=== PATIENT | female | born 1965 | race Caucasian/White ===

== ENCOUNTER 2016-09-17 19:10 | Emergency (ER) | payer MEDICAID ==
[~2016-09-17] VITALS: Ht 152.4 cm; Wt 55.5 kg
[2016-09-17 19:19] VITALS: Ht 152.4 cm; Wt 55.5 kg
[2016-09-17 19:54] LABS: URINE BLOOD (Dip) POC 3+ (NEGATIVE)
[2016-09-17 19:58] LABS: ADD SCAN DIFF NO
[2016-09-17 20:12] LABS: BASOPHIL # 0.1 10^3/ul (0.0-0.1); BASOPHILS % 0.6 % (0.0-2.0); EOSINOPHILS # 0.1 10^3/ul (0.0-0.5); EOSINOPHILS % 1.1 % (0.0-7.0); HEMATOCRIT 41.9 % (37.0-47.0); HEMOGLOBIN 13.3 g/dl (12.0-16.0); LYMPHOCYTES # 3.2 10^3/ul (0.8-2.9); MEAN CORPUSCULAR HEMOGLOBIN 29.6 pg (29.0-33.0); MEAN CORPUSCULAR HGB CONC 31.7 g/dl (32.0-37.0); MEAN CORPUSCULAR VOLUME 93.3 fl (82.0-101.0); MEAN PLATELET VOLUME 10.4 fl (7.4-10.4); MONOCYTE # 0.8 10^3/ul (0.3-0.9); MONOCYTES % 7.3 % (0.0-11.0); NEUTROPHIL # 6.6 10^3/ul (1.6-7.5); NEUTROPHILS % 60.7 % (39.0-77.0); PLATELET COUNT 341 10^3/UL (140-415); RED BLOOD COUNT 4.49 10^6/ul (4.20-5.40); RED CELL DISTRIBUTION WIDTH 13.3 % (11.5-14.5); WHITE BLOOD COUNT 10.8 10^3/ul (4.8-10.8)
--- NOTE | 2016-09-17 20:32 | RADRPT ---
PROCEDURE: US Pelvis. CLINICAL INDICATION: Pelvic pain and vaginal bleeding. TECHNIQUE: The pelvis was evaluated with transabdominal and transvaginal sonography in the axial a nd sagittal planes. COMPARISON: No prior study is available for comparison. FINDINGS: Uterus: 8.1 x 4.0 x 5.3 cm. Endometrium: 3.9 mm. Right ovary: 2.1 x 1.6 x 1.9 cm. Left ovary: Not visualized. Uterine masses: There is a posterior hypoechoic fibroid in the uterus measuring 0.9 x 0.8 x 1.0 cm. There is no other uterine mass. Ovarian masses: There is a benign-appearing right ovarian cyst measuring 1.5 x 1.0 x 1.6 cm with no internal echoes or septations. The left ovary is not visualized. Color Doppler and pulsed Doppler s onography demonstrate normal flow to the right ovary. Other pelvic masses: None. Free fluid: None. IMPRESSION: 1. Benign-appearing right ovarian cyst measuring 1.6 cm. No further evaluation required. 2. Left ovary not visualized. 3. Small fibroid in the uterus measuring 1.0 cm. 4. Otherwise unremarkable pelvic ultrasound. RPTAT: QQ .Yefri Mallory MD, Date Time Electronically viewed and signed by .Yefri Mallory MD, on 09/17/2016 20:31 .R/
[2016-09-17] MEDS ORDERED: IBUP-1542 PO (20:37)
--- NOTE | 2016-09-17 20:47 | ERD ---
ER Documentation Chief Complaint Date/Time DATE: 09/17/16 TIME: 20:42 Chief Complaint Vaginal bleed x3 weeks. LMP on July She is a 51-year-old female who presents to the emergency department with numerous concerns including vaginal bleeding 3 weeks, pelvic pain, dizziness. Patient states that she has a history of irregular periods. Patient states typically her period occurs at the end of the month. However over the recent months her period has been occurring irregularly. Patient states that she had vaginal bleeding for 1 day in August however for the last 3 weeks she has been bleeding nonstop. Patient ports passing numerous blood clots. Patient states she uses approximately 3 pads per day. Patient denies any fevers however she does admit to chills. Patient denies any nausea, vomiting, abdominal pain, diarrhea. Patient denies any chest pain, shortness of breath. Patient does feel slightly dizzy and states she had does have a mild headache. Patient denies sudden onset of headache. Patient denies any loss of consciousness. ROS All systems reviewed and are negative except as per history of present illness. Medications Home Meds Active Scripts Ibuprofen* (Motrin*) 600 Mg Tab, 600 MG PO Q6, #30 TAB Prov:JHONATHAN BOYLE PA-C 09/17/16 PMhx/Soc Medical and Surgical Hx: pt denies Medical Hx, pt denies Surgical Hx Hx Alcohol Use: No Hx Substance Use: No Hx Tobacco Use: No Smoking Status: Never smoker Physical Exam Vitals Vital Signs Date Time Temp Pulse Resp B/P Pulse Ox O2 Delivery O2 Flow Rate FiO2 09/17/16 19:19 98.9 78 20 157/91 100 Physical Exam GENERAL: Well-developed, well-nourished female. Appears in no acute distress. HEAD: Normocephalic, atraumatic. EYES: Pupils are equally reactive bilaterally. EOMs grossly intact. No conjunctival erythema. No Conjunctival pallor ENT: Moist mucous membranes. No uvula deviation. No kissing tonsils. NECK: Supple. No meningismus. Normal range of motion of the neck. LUNG: Clear to auscultation bilaterally. No rhonchi, wheezing, rales or coarse breath sounds. HEART: Regular rate and rhythm. No murmurs, rubs or gallops. ABDOMEN: No scars, ecchymosis or rashes noted. Soft, and nondistended. Tender to palpation of this suprapubic region. Positive bowel sounds in all four quadrants. No rebound tenderness, no guarding. (-) McBurney's point tenderness. No CVA tenderness. EXTREMITIES: Equal pulses bilaterally. No peripheral clubbing, cyanosis or edema. No unilateral leg swelling. NEUROLOGIC: Alert and oriented. Moving all four extremities without any difficulty. Normal speech. Steady gait. SKIN: Normal color. Warm and dry. No rashes or lesions. Result Diagram: 09/17/161947 Results 24 hrs Laboratory Tests Test 09/17/16 19:48 09/17/16 19:52 Basophils # 0.110^3/ul Basophils % 0.6% Eosinophils # 0.110^3/ul Eosinophils % 1.1% Hematocrit 41.9% Hemoglobin 13.3g/dl Lymphocytes # 3.210^3/ul Lymphocytes % 30.0% Mean Corpuscular Hemoglobin 29.6pg Mean Corpuscular Hemoglobin Concent 31.7g/dl Mean Corpuscular Volume 93.3fl Mean Platelet Volume 10.4fl Monocytes # 0.810^3/ul Monocytes % 7.3% Neutrophils # 6.610^3/ul Neutrophils % 60.7% Nucleated Red Blood Cells # 0.010^3/ul Nucleated Red Blood Cells % 0.0/100WBC Platelet Count 58230^3/UL Red Blood Count 4.4910^6/ul Red Cell Distribution Width 13.3% White Blood Count 10.810^3/ul Bedside Urine Blood 3+ Bedside Urine Glucose (UA) Negative Bedside Urine Ketones (LAB) Negative Bedside Urine Leukocyte Esterase (L Negative Bedside Urine Nitrite (LAB) Negative Bedside Urine Protein (LAB) Trace Bedside Urine pH (LAB) 6.0 Procedures/MDM ED COURSE: The patient was stable throughout ED course. I kept the patient and/or family informed of laboratory and diagnostic imaging results throughout the ED course. DIAGNOSTIC IMAGING: Read by radiologist. Patient: HORACIO CODY : 1965 Age: 51 Sex: F MR #: [id number] DOS: 09/17/161937 Ordering MD: JHONATHAN BOYLE PA-C Location: [facility] Room/Bed: PROCEDURE: US Pelvis. CLINICAL INDICATION: Pelvic pain and vaginal bleeding. TECHNIQUE: The pelvis was evaluated with transabdominal and transvaginal sonography in the axial and sagittal planes. COMPARISON: No prior study is available for comparison. FINDINGS: Uterus: 8.1 x 4.0 x 5.3 cm. Endometrium: 3.9 mm. Right ovary: 2.1 x 1.6 x 1.9 cm. Left ovary: Not visualized. Uterine masses: There is a posterior hypoechoic fibroid in the uterus measuring 0.9 x 0.8 x 1.0 cm. There is no other uterine mass. Ovarian masses: There is a benign-appearing right ovarian cyst measuring 1.5 x 1.0 x 1.6 cm with no internal echoes or septations. The left ovary is not visualized. Color Doppler and pulsed Doppler sonography demonstrate normal flow to the right ovary. Other pelvic masses: None. Free fluid: None. IMPRESSION: 1. Benign-appearing right ovarian cyst measuring 1.6 cm. No further evaluation required. 2. Left ovary not visualized. 3. Small fibroid in the uterus measuring 1.0 cm. 4. Otherwise unremarkable pelvic ultrasound. RPTAT: QQ .Yefri Mallory MD, MD Date Time Electronically viewed and signed by .Yefri Mallory MD, MD on 09/17/2016 20:31 .R/ CC: JHONATHAN BOYLE PA-C MEDICAL DECISION MAKING: This is a 51-year-old female who presents with vaginal bleeding and pelvic pain. She states her period has been irregular over the last few months. Patient states her current menstrual cycle is lasting 3 weeks.. Vital signs were reviewed. Patient was afebrile. Urine test was negative. CBC showed no evidence of systemic infection or severe anemia. UA showed no signs of acute infection. Pelvic ultrasound showed Benign-appearing right ovarian cyst measuring 1.6 cm. No further evaluation required. Left ovary not visualized. Small fibroid in the uterus measuring 1.0 cm. Given these findings, the patients presentation is most consistent with signs of menopause and fibroid. I have a much lower clinical concern for ovarian torsion, PID, tubo-ovarian abscess, vulvovaginitis, uterine prolapse, nephrolithiasis, pyelonephritis, UTI, appendicitis, diverticulitis, bowel obstruction, perirectal abscess. Unable to rule out any malignancy at this time. Patient was advised that she will need to follow-up with an [employer] for further management of her symptoms. PRESCRIPTIONS: Ibuprofen DISCHARGE: At this time, patient is stable for discharge and outpatient management. I have instructed the patient to follow-up with his/her primary care physician in 1-2 days. I have discussed with the patient the possibility of needing to see OBGYN for further workup and diagnostic studies if the pain persists. I have instructed the patient to promptly return to the ER at any time for any new or worsening symptoms including increased pain, nausea, vomiting, vaginal bleeding , weakness or fever. The patient and/or family expressed understanding of and agreement with this plan. All questions were answered. Home care instructions were provided. Abdominal pain Departure Diagnosis: Primary Impression: Pelvic pain Additional Impression: Vaginal bleeding Condition: Stable Patient Instructions: Pelvic Pain, Unknown Cause Referrals: [facility] YOU HAVE RECEIVED A MEDICAL SCREENING EXAM AND THE RESULTS INDICATE THAT YOU DO NOT HAVE A CONDITION THAT REQUIRES URGENT TREATMENT IN THE EMERGENCY DEPARTMENT. FURTHER EVALUATION AND TREATMENT OF YOUR CONDITION CAN WAIT UNTIL YOU ARE SEEN IN YOUR DOCTORS OFFICE WITHIN THE NEXT 1-2 DAYS. IT IS YOUR RESPONSIBILITY TO MAKE AN APPOINTMENT FOR FOLOW-UP CARE. IF YOU HAVE A PRIMARY DOCTOR --you should call your primary doctor and schedule an appointment IF YOU DO NOT HAVE A PRIMARY DOCTOR YOU CAN CALL OUR PHYSICIAN REFERRAL HOTLINE AT IF YOU CAN NOT AFFORD TO SEE A PHYSICIAN YOU CAN CHOSE FROM THE FOLLOWING [facility] CLINICS [facility] [address] [facility] [address] [facility] [address] [facility] [address] [facility] [address] [facility]. [facility]. [address] [facility]. [facility] YOU HAVE RECEIVED A MEDICAL SCREENING EXAM AND THE RESULTS INDICATE THAT YOU DO NOT HAVE A CONDITION THAT REQUIRES URGENT TREATMENT IN THE EMERGENCY DEPARTMENT. FURTHER EVALUATION AND TREATMENT OF YOUR CONDITION CAN WAIT UNTIL YOU ARE SEEN IN YOUR DOCTORS OFFICE WITHIN THE NEXT 1-2 DAYS. IT IS YOUR RESPONSIBILITY TO MAKE AN APPOINTMENT FOR FOLOW-UP CARE. IF YOU HAVE A PRIMARY DOCTOR --you should call your primary doctor and schedule and appointment IF YOU DO NOT HAVE A PRIMARY DOCTOR YOU CAN CALL OUR PHYSICIAN REFERRAL HOTLINE AT . IF YOU CAN NOT AFFORD TO SEE A PHYSICIAN YOU CAN CHOSE FROM THE FOLLOWING [facility] INSTITUTIONS: [facility] [address] [place] [address] [facility] [address] [place] [address] [facility] [address] [place] [address] [employer] [address] [facility] [address] [place] [address] OFFICE FAX KYLEE ROBB [address] [place] [address] [facility] [address] [place] [address] VIJAYA [address]NAB[address]A [address] [facility], [address] [address] [address] [address] [place] [address] [facility] [address] [place] [address] [phone] [address] [facility] [address] - [place] [address], [facility] [address] [address] [address] [facility]. [address], [facility] [address] [address] [address] [place] [address] Additional Instructions: Call your primary care doctor/OBGYN TOMORROW for an appointment during the next 1-2 days.See the doctor sooner or return here if your condition worsens before your appointment time. Unable to rule out endometrial cancer at this time. Patient will need to follow -up with an OBGYN LANE. JHONATHAN BOYLE PA-C Sep 17, 2016 20:47
== END 2016-09-17 20:49 | disposition home or self-care (01) ==
LOC: FTE 19:10
DX: R10.2 Pelvic and perineal pain (principal)
CPT/HCPCS: 36415; 76830; 76856; 81003; 85025; Z7502

== ENCOUNTER 2018-11-06 11:58 | Emergency (ER) | payer SELFPAY ==
[~2018-11-06] VITALS: Ht 154.9 cm; Wt 57.9 kg
[~2018-11-06 11:58] MED LIST: IBUP-1542 PO
[2018-11-06 12:13] VITALS: BP 149/107; PULSE 100; RESP 19; Ht 154.9 cm; Wt 57.9 kg
== END 2018-11-06 15:01 | disposition left against medical advice (07) ==
LOC: E/R 11:58
DX: Z53.21 Procedure and treatment not carried out due to patient leaving prior to being seen by health care provider (principal)
CPT/HCPCS: 93005